=== PATIENT | male | born 1930 | race Caucasian/White ===

== ENCOUNTER 2019-08-01 12:36 | Observation (INO) ==
--- NOTE | 2019-08-01 13:49 | Diag Imaging Result Doc PS360 ---
EXAM: CT HEAD W/O CONTRAST HISTORY: Confusion TECHNIQUE: CT head without contrast COMPARISON: None. FINDINGS: No parenchymal hemorrhage. No epidural or subdural hematoma. No subarachnoid hemorrhage. Mild chronic ischemic changes. No mass identified on this noncontrasted exam. No hydrocephalus. No sinus opacification. IMPRESSION: No hemorrhage. Mild chronic ischemic changes.. This exam was performed using automated exposure control, adjustment of mA or kV according to patient size, and/or use of iterative reconstruction technique. Electronically signed by Darren Root 08/01/2019 1:47 PM
--- NOTE | 2019-08-01 14:30 | EKG Report ---
Test Performed on : 08/01/2019 2:27:40 PM Test Reason : Stroke like symptoms Blood Pressure : / mmHG Vent. Rate : 080 BPM Atrial Rate : 092 BPM P-R Int : 000 ms QRS Dur : 112 ms QT Int : 354 ms P-R-T Axes : 000 029 004 degrees QTc Int : 408 ms Atrial fibrillation. with premature ventricular or aberrantly conducted complexes. Abnormal ECG No previous ECGs available Unconfirmed Result
--- NOTE | 2019-08-01 14:32 | PROVIDER DOCUMENTATION ---
HPI-Neurological Disorder - General Chief Complaint: Altered Mental Status Stated Complaint: STROKE LIKE SYMPTOMS Time Seen by Provider: 08/01/19 14:13 Source: patient, family Allergies/Adverse Reactions: Patient Allergies Allergy/AdvReac Type Severity Reaction Status Date / Time ciprofloxacin [From Cipro] Allergy Unknown Verified 08/01/19 14:41 Penicillins Allergy Unknown Verified 08/01/19 14:41 Home Medications: Home Medication List Medication Instructions Recorded Confirmed Last Taken Type Apixaban [Eliquis] 2.5 mg PO BID 05/29/17 08/01/19 07/31/19 History Digoxin 125 mcg PO DAILY 05/29/17 08/01/19 07/31/19 History - History of Present Illness-Neuro Nature of Presenting Problem: 89 yom presents with c/o occipital headache that occured yesterday, l arm numbness and the l side of his mouth became numd. he reports this was at approx 4pm yesterday. his daughter reports that he has been confused and "got lost in a room last night". On exam he is [place] but answers all questions appropriately. he reports no current numbness or tingling. He denies falls, sob, cp, n/v/d. he reports he did get his flu shot on Headache Location: reports: occipital Severity: denies: mild, moderate, severe Onset/Duration: reports: 24 hours ago Timing: reports: gone now Context: reports: paresthesia (L arm and L side of mouth). denies: drug abuse, head injury Character of Altered Mental Status: reports: disoriented (got lost in a room last night in his home but is back to baseline currently) Any recent trauma/injury?: reports: none Character of Deficits: reports: altered sensation (L arm and L face last night that has resolved) New weakness or altered sensation location:: reports: LUE, left facial Cognitive Baseline: alert, oriented x3 Gait Baseline: uses a walker Associated Symptoms: reports: headache, confusion, paresthesia Similar Symptoms Previously?: No Recently seen or treated by another doctor?: No Review of Systems - Adult - REVIEW OF SYSTEMS - ADULT Constitutional: reports: no symptoms reported. denies: see HPI, chills, fever, fatique, night sweats, weight gain, weight loss, other Eyes: reports: no symptoms reported. denies: see HPI, discharge, dry eyes, decreased vision, blurred vision, double vision, eye pain, redness, other Ears, Nose, Mouth & Throat: reports: no symptoms reported. denies: see HPI, ear discharge, ear pain, hearing loss, tinnitus, epistaxis, sinus problem, nose pain, loose teeth, mouth/dental pain, mouth swelling, hoarseness, throat pain, throat swelling, other Cardiovascular: reports: no symptoms reported Respiratory: reports: no symptoms reported. denies: see HPI, chronic cough, cou gh, dyspnea on exertion, excessive sputum production, hemoptysis, pleurisy, shortness of breath, wheezing, other Gastrointestinal: reports: no symptoms reported. denies: see HPI, abdominal pain, hematemesis, constipation, diarrhea, difficulty swallowing, frequent heartburn, nausea, poor appetite, rectal bleeding, vomiting, other Genitourinary: reports: no symptoms reported. denies: see HPI, dysuria, discharge, frequency, flank pain, frequent UTI's, hematuria, hesitency, incontinence, urinary retention, urgency, other Musculoskeletal: reports: no symptoms reported. denies: see HPI, bone pain, back pain, frequent leg cramps, joint pain, joint swelling, muscle aches, muscle weakness, neck pain, other Integumentary: reports: no symptoms reported. denies: see HPI, hives, hair loss, itching, mole changes, nail changes, rash, skin sores/ulcer, skin thickening, other Neurological: reports: see HPI, headache/migraines, numbness (l face and arm), paresthesia Psychiatric: reports: no symptoms reported. denies: see HPI, anxiety, anti- depressant use, alcohol/drug dependence, depression, emotional problems, insomnia, panic attacks, suicidal thoughts, other Endocrine: reports: no symptoms reported. denies: see HPI, change in skin pigment, excessive sweating, goiter, cold intolerance, heat intolerance, increased hunger, increased thirst, polyuria, other Hematologic/Lymphatic: reports: no symptoms reported. denies: see HPI, blood clots, easy bruising, low blood count, lymphedema, prolonged bleeding, swollen lymph nodes, transfusions, other Allergic/Immunologic: reports: no symptoms reported. denies: see HPI, allergic reactions, allergic rhinitis, asthma, eczema, food allergy, frequent infections, hay fever, hives, positive PPD, urticaria, other Past History - Adult - PAST MEDICAL HISTORY-ADULT Review of Records: reports: Nursing Assessment Review, Social history reviewed & non-contributory. Major Childhood Illnesses: reports: denies history Cardiovascular: reports: CAD, HTN Respiratory: reports: denies history Gastrointestinal: reports: denies history Obstetrical/Gynecological: reports: denies history Genitourinary: reports: denies history Musculoskeletal: reports: denies history Neurological: reports: denies history Endocrine/Immune: reports: Diabetes, thyroid disorder Other Conditions: reports: cataract/glaucoma - PRIOR SURGERIES/PROCEDURES Surgical/Procedure History: reports: cardiac stent, other (hemorrhoid) - IMMUNIZATION STATUS Childhood Immunizations: See Nurse Assessment Flu Vaccine: See Nurse Assessment - FAMILY HISTORY Family History: reviewed, not pertinent Physical Exam- Neurological - Physical Exam-Neuro Initial Vital Signs Reviewed: Yes General Appearance: appears well, alert, no apparent distress Eye Exam: bilateral eye: normal inspection, PERRL, EOMI HENMT: normocephalic/atraumatic, moist mucous membranes, normal ENT inspection Head Injury: no evidence of injury Neck: non-tender, full range of motion, supple Respiratory: chest non-tender, lungs clear, normal breath sounds, no pleuratic chest pain, no respiratory distress, no accessory muscle use Cardiovascular: normal peripheral pulses, regular rate, rhythm, no edema, no gallop, no JVD, no murmur Abdominal Exam: normal bowel sounds, non tender, soft, no pulsatile mass Lymphatic: no adenopathy Extremity: normal range of motion, non-tender, normal gait, normal inspection, 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 negative: normal hearing ([place] (left hearing aids at home)), facial droop, facial paresthesias, facial weakness Coordination/Gait: normal finger to nose Motor/Sensory: no motor deficit, no sensory deficit, no pronator drift Neurologic: grossly normal. negative: aphasia, facial droop, focal weakness, motor weakness, sensory deficit Integumentary: normal color, normal turgor, warm/dry Psych/Mental Status: normal mood/affect, oriented x 3 - Glascow Coma Scale Best Eye Response: (4) open spontaneously Best Verbal Response: (5) oriented Best Motor Response: (6) obeys commands Progress - PLAN OF CARE/RESULTS Progress/Plan/Lab Results: Vital Signs - 8 hr 08/01/19 12:47 08/01/19 14:25 08/01/19 14:26 Temperature 98.7 F Pulse Rate 83 92 H 80 Respiratory Rate 16 20 34 H Blood Pressure 123/72 123/77 O2 Sat by Pulse Oximetry 97 Laboratory Results - last 24 hr 08/01/19 08/01/19 08/01/19 14:35 14:35 14:35 WBC 5.08 RBC 4.89 Hgb 13.9 L Hct 41.6 L MCV 85.1 MCH 28.4 MCHC 33.4 RDW Std Deviation 13.7 Plt Count 165 MPV 11.9 H Immature Gran % (Auto) 0.8 H Neut % (Auto) 66.3 Lymph % (Auto) 18.7 L [place] % (Auto) 12.2 H Eos % (Auto) 0.8 Baso % (Auto) 1.2 H Immature Gran # (Auto) 0.04 Neut # (Auto) 3.37 Lymph # (Auto) 0.95 L [place] # (Auto) 0.62 H Eos # (Auto) 0.04 Baso # (Auto) 0.06 PT 16.5 H INR 1.31 PTT (Actin FS) 34.7 Sodium 131 L Potassium 4.3 Chloride 93 L Carbon Dioxide 24 L Anion Gap 14 BUN 17 Creatinine 0.7 Estimated GFR/1.73 m2 > 60 BUN/Creatinine Ratio 24 Glucose 289 H Calculated Osmolality 275 Calcium 9.7 Total Bilirubin 0.51 AST 18 ALT 16 Alkaline Phosphatase 96 Troponin T Total Protein 7.1 Albumin 4.1 Globulin 3.0 Albumin/Globulin Ratio 1.4 Urine Source Urine Color Urine Turbidity Urine pH Ur Specific [place] Urine Protein Ur Glucose (Stick) Ur Ketones (Stick) Urine Blood Urine Nitrite Urine Bilirubin Urobilinogen Dipstick Urine Leukocytes Urine WBC (Auto) Urine RBC (Auto) U Epithel Cells (Auto) Urine Bacteria (Auto) Urine Opiates Screen Ur Oxycodone Screen Ur Methadone, Qual Ur Barbiturates Screen Ur Phencyclidine Scrn Ur Amphetamines Screen U Benzodiazepines Scrn Urine Cocaine Screen U Cannabinoids Screen 08/01/19 08/01/19 08/01/19 14:35 14:57 14:57 WBC RBC Hgb Hct MCV MCH MCHC RDW Std Deviation Plt Count MPV Immature Gran % (Auto) Neut % (Auto) Lymph % (Auto) [place] % (Auto) Eos % (Auto) Baso % (Auto) Immature Gran # (Auto) Neut # (Auto) Lymph # (Auto) [place] # (Auto) Eos # (Auto) Baso # (Auto) PT INR PTT (Actin FS) Sodium Potassium Chloride Carbon Dioxide Anion Gap BUN Creatinine Estimated GFR/1.73 m2 BUN/Creatinine Ratio Glucose Calculated Osmolality Calcium Total Bilirubin AST ALT Alkaline Phosphatase Troponin T < 0.010 Total Protein Albumin Globulin Albumin/Globulin Ratio Urine Source CLEAN CATCH Urine Color YELLOW Urine Turbidity CLEAR Urine pH 5.5 Ur Specific [place] 1.025 Urine Protein NEGATIVE Ur Glucose (Stick) >1000 A Ur Ketones (Stick) NEGATIVE Urine Blood NEGATIVE Urine Nitrite NEGATIVE Urine Bilirubin NEGATIVE Urobilinogen Dipstick NORMAL Urine Leukocytes NEGATIVE Urine WBC (Auto) <10 Urine RBC (Auto) <10 U Epithel Cells (Auto) <10 Urine Bacteria (Auto) NEGATIVE Urine Opiates Screen NONE DETECTED Ur Oxycodone Screen NONE DETECTED Ur Methadone, Qual NONE DETECTED Ur Barbiturates Screen NONE DETECTED Ur Phencyclidine Scrn NONE DETECTED Ur Amphetamines Screen NONE DETECTED U Benzodiazepines Scrn NONE DETECTED Urine Cocaine Screen NONE DETECTED U Cannabinoids Screen NONE DETECTED Orders Category Date Time Status Cardiac Monitoring DIRECTED Care 08/01/19 14:19 Active Finger Stick Blood Sugar (ED) DIRECTED Care 08/01/19 14:19 Active Saline Loc NOW Care 08/01/19 14:19 Active Saline Loc NOW Care 08/01/19 14:[address] HEAD W/O CONTRAST [CT] Stat Exams 08/01/19 12:55 Completed CBC WITH ELECTRONIC DIFF [HEME] Stat Lab 08/01/19 14:35 Completed COMPREHENSIVE METABOLIC PANEL [CHEM] Stat Lab 08/01/19 14:35 Completed PROTIME WITH INR [COAG] Stat Lab 08/01/19 14:35 Completed PTT [COAG] Stat Lab 08/01/19 14:35 Completed TROPONIN T Stat Lab 08/01/19 14:35 Completed URINALYSIS W/POSS RFLX CULT [URINALYSIS] Stat Lab 08/01/19 14:57 Completed URINE DRUG SCREEN Stat Lab 08/01/19 14:57 Completed EKG [EKG] Stat Ther 08/01/19 14:19 Draft Result Diagrams: 08/01/19 14:35 08/01/19 14:35 - EKG 1 Time of EKG reading by physician:: 14:33 EKG Read and Signed by:: Vishal Montes EKG Interpretation (*Must complete 3 of following elements*): Abnormal Rate: 80 Rhythm: a-fib [place]: normal QRS: normal [place] Interval: normal ST Wave: normal Prior EKG Comparison: no prior EKG - CT/MRI 1 CT Study: Head Impression: See EMR Report (EXAM: CT HEAD W/O CONTRAST HISTORY: Confusion TECHNIQUE: CT head without contrast COMPARISON: None. FINDINGS: No parenchymal hemorrhage. No epidural or subdural hematoma. No subarachnoid hem orrhage. Mild chronic ischemic changes. No mass identified on this noncontrasted exam. No hydrocephalus. No sinus opacification. IMPRESSION: No hemorrhage. Mild chronic ischemic changes.. This exam was performed using automated exposure control, adjustment of mA or kV according to patient size, and/or use of iterative reconstruction technique. Electronically signed by Darren Root 08/01/2019 1:47 PM 08/01/19 1347 Interpreting Physician: Darren Root MD Dictated Date/Time: 08/01/19 1346 cc: Keri De Paz; Alex Ordaz DO) - CONSULTS/PCP/HOSPITALIST Notification #1 *Consult/PCP/Hospitalist*: admit to Dr. Cuevas, spoke with [place] [facility] Time Discussed: 15:55 Consult Disposition: Admit Departure - Departure Date of Disposition Decision: 08/01/19 Time of Disposition Decision: 15:54 DIAGNOSIS: TIA (transient ischemic attack) Disposition: ADMITTED INPATIENT 09 Certified Medical Emergency: Emergent Condition: Stable Referrals and Follow-Ups: Alex Ordaz DO [Primary Care Provider] - - Critical Care Note This patient required my direct & personal management of CC.: No Attestation - Physician/ LUIZ Attestation Patient care was provided by Advanced Practice Provider:: Yes Advanced Practice Provider:: Meagan Tao Advanced Practice Provider documentation review:: The Mid-level provider documentation, treatment plan and medical decision making was reviewed by the physician who agrees with all treatment and medical decision making by the MLP. The physician spent face to face time with patient:: No Advanced Practice Provider documentation review:: Supervising physician onsite and consulted in the evaluation and care of this patient. The physician did not have a face to face encounter with the patient. - NIH Stroke Scale NIH Type: Initial Evaluation Level of Consciousness: 0-Alert LOC Questions (ask month and age): 0-Answers Both Correctly LOC Commands (ask to open & close eyes;make a fist, let go): 0-Obeys Both Correctly Best Gaze (horizontal eye movement): 0-Normal Visual (use finger movement, counting or visual threat): 0-No Visual Loss Facial Palsy (show teeth or raise eyebrows & close eyes tght: 0-Symmetrical Movement Motor Function-left arm: 0-Normal Motor Function-right arm: 0-Normal Motor Function-left le-Normal Motor Function-right le-Normal Limb Ataxia([id number], or heel to alvarado): 0-No Ataxia Sensory(pin prick to face,arms,trunk,legs-compare side/side): 0-No Ataxia Best Language(name item/read sentence.Ex-Down to Earth): 0-No Aphasia Dysarthria(Pt read words or say words Ex.Mama,Tip-Top,Thanks: 0-Normal Articulation Extinction and Inattention: 0-Normal NIH Total Score: 0 Stroke tPA Guidelines - Inclusion Criteria for IV tPA 18 years old or older: Yes Ischemic stroke with measurable deficit: No Onset <3 hours ago *OR* 3-4.5 hours ago: No
[2019-08-01 14:52] LABS: BASO# 0.06 X1000 (0.0-0.2); BASO% 1.2 % (0.0-0.8); EOS# 0.04 X1000 (0.0-0.7); EOS% 0.8 % (0.0-10.0); HEMATOCRIT 41.6 % (42.0-52.0); HEMOGLOBIN 13.9 g/dL (14.0-18.0); IMM GRAN# 0.04 X1000 (0.0-0.04); IMM GRAN% 0.8 % (0.0-0.5); LYMPH# 0.95 X1000 (1.2-3.4); LYMPH% 18.7 % (20.5-51.1); MCH 28.4 PG (27-31); MCHC 33.4 g/dL (33-37); MCV 85.1 FL (81-99); MONO# 0.62 X1000 (0.11-0.59); MONO% 12.2 % (1.7-9.3); MPV 11.9 FL (7.4-10.4); NEUT# 3.37 X1000 (1.4-6.5); NEUT% 66.3 % (42.2-75.2); PLT 165 X1000 (130-400); RBC 4.89 XMIL (4.7-6.1); RDW 13.7 % (11.5-14.5); WBC 5.08 X1000 (4.8-10.8)
[2019-08-01 14:58] LABS: INR 1.31; PROTIME 16.5 Seconds (11.0-16.0)
[2019-08-01 14:59] LABS: PTT 34.7 Seconds (22.3-41.8)
[2019-08-01 15:04] LABS: URINE SOURCE CLEAN CATCH
[2019-08-01 15:10] LABS: UR EPITHELIAL CELLS <10 /HPF (<10); URINE BACTERIA NEGATIVE /HPF; URINE RBC <10 /HPF (<10); URINE WBC <10 /HPF (<10)
[2019-08-01 15:11] LABS: BILIRUBIN URINE NEGATIVE (NEGATIVE); BLOOD URINE NEGATIVE (NEGATIVE); COLOR YELLOW; GLUCOSE URINE >1000 mg/dL (NEGATIVE); KETONE URINE NEGATIVE (NEGATIVE); LEUKOCYTES URINE NEGATIVE (NEGATIVE); NITRITE URINE NEGATIVE (NEGATIVE); PH URINE 5.5; PROTEIN URINE NEGATIVE (NEGATIVE); SP GRAVITY URINE 1.025; TURBIDITY URINE CLEAR (CLEAR); UROBILINOGEN URINE NORMAL (NORMAL)
[2019-08-01 15:21] LABS: AGAP 14; ALB/GLOB RATIO 1.4; ALBUMIN 4.1 g/dL (3.5-5.0); ALKALINE PHOSPHATASE 96 U/L (32-122); BUN 17 mg/dL (8-22); CALCIUM 9.7 mg/dL (8.8-10.2); CHLORIDE 93 mmol/L (98-107); COSMO 275; CREATININE 0.7 mg/dL (0.7-1.2); ESTIMATED GFR > 60; GLUCOSE 289 mg/dL (70-104); GOT 18 U/L (10-34); GPT 16 U/L (10-44); POTASSIUM 4.3 mmol/L (3.5-5.1); SODIUM 131 mmol/L (136-145); TCO2 24 mmol/L (25-35); TOTAL BILIRUBIN 0.51 mg/dL (0.20-1.00); TOTAL PROTEIN 7.1 g/dL (6.3-8.3)
[2019-08-01 15:21] LABS: UR AMPHETAMINES QUAL NONE DETECTED (NONE DETECT); UR BARBITUATES QUAL NONE DETECTED (NONE DETECT); UR BENZODIAZEPIN QUAL NONE DETECTED (NONE DETECT); UR CANNABINOIDS QUAL NONE DETECTED (NONE DETECT); UR COCAINE QUAL NONE DETECTED (NONE DETECT); UR METHADONE QUAL NONE DETECTED (NONE DETECT); UR OPIATES QUAL NONE DETECTED (NONE DETECT); UR OXYCODONE QUAL NONE DETECTED (NONE DETECT); UR PCP QUAL NONE DETECTED (NONE DETECT)
[2019-08-01] MEDS ORDERED: ASPIRIN PO ONE (15:55)
--- NOTE | 2019-08-01 16:49 | HISTORY AND PHYSICAL ---
PRIMARY CARE PHYSICIAN: Dr. Alex Ordaz. CHIEF COMPLAINT: A headache, left arm numbness and left side of mouth numb that began on Thursday around 4 p.m. but has now resolved, was also noted to have been confused and got lost in his home last night. HISTORY OF PRESENTING ILLNESS: This is an 89-year-old male who presents to [facility] with complaints of an occipital headache, some left arm numbness and left side of his mouth being numb that began on Thursday evening around 4 p.m. Daughter states that he also got confused Thursday night at home and got lost in his home going to the bathroom and could not remember where to go. All the symptoms have resolved at this time. He is alert and oriented x3, answers all questions appropriately, has no neurological deficits but does state that he still has some mild numbness to the left side of his lip but otherwise neurological exam is within normal limits. His workup showed a head CT that showed no hemorrhage, mild chronic ischemic changes. Laboratory data fairly unremarkable except he did have sodium level of 131. Urinalysis was negative. Urine drug screen was negative but he will be admitted for further evaluation and treatment. PAST MEDICAL HISTORY: Coronary artery disease with an CO, hypertension, atrial fibrillation, diabetes type 2 and hypothyroidism. PAST SURGICAL HISTORY: Heart stent placement, hemorrhoidectomy and a cataract removal. FAMILY HISTORY: Reviewed and noncontributory. SOCIAL HISTORY: Currently lives with family. Denies any tobacco, alcohol or illicit drug use. ALLERGIES: To Cipro and penicillin. HOME MEDICATIONS: He takes Eliquis 2.5 mg p.o. b.i.d. and digoxin 125 mcg p.o. daily. LABORATORY DATA: Showed a white blood cell count of 5.08, hemoglobin 13.9, hematocrit 41.6, platelets 165,000, PT and INR of 16.5 and 1.31. Sodium of 131, potassium 4.3, chloride 93, CO2 24, BUN of 17, creatinine 0.7, glucose 289. Troponin was less than 0.010. Urinalysis was negative. Urine drug screen showed none detected. CT of the head showed no hemorrhage but mild chronic ischemic changes. EKG showed atrial fibrillation with PVCs at 80. REVIEW OF SYSTEMS: He denied any fever, chills, blurred vision, dizziness, chest pain, coughing, shortness of breath, abdominal pain, constipation, diarrhea, burning or hurting with urination. On Thursday night he did have a headache and left-sided arm numbness and left- sided lip numbness which have all resolved at this time. PHYSICAL EXAMINATION: On arrival he had a temperature of 98.7 degrees, pulse 83, respirations 16, blood pressure 123/72, saturating 97% on room air. GENERAL: This is an 89-year-old male who is lying in the bed and answers questions appropriately. HEENT: Normocephalic and atraumatic. Normal ENT inspection. Oropharynx and nares are clear. Pupils are equal, round, reactive to light and accommodation. Extraocular movements are intact. NECK: Normal inspection, normal range of motion. LUNGS: Clear to auscultation bilaterally with equal lung expansion and chest wall movement. HEART: With regular rate and rhythm. No murmurs, rubs, or gallops. ABDOMEN: Soft, nontender, nondistended. Bowel sounds are present x4 quadrants. MUSCULOSKELETAL: He had 5/5 strength x4 extremities. NEUROLOGICAL: The cranial nerves 2-12 appear grossly intact. ASSESSMENT: 1. Transient ischemic attack. Will place the patient on telemetry and order a carotid doppler and MRI of the brain to be done tomorrow. Will start aspirin and check a lipid profile in the morning. Will order PT and OT. 2. Hyponatremia. Will start IVF and monitor the sodium closely. 3. Atrial fibrillation. The patient is rate controlled. Continue on eliquis and digoxin. 4. Diabetes type 2.. Will start sliding scale insulin. Dictated by CHELSEY Ryan for Mely Ge MD cc: DO Mely Gunderson MD I performed a face to face encounter on the patient. I reviewed all labs and imaging on the patient. I agree with the H&P as dictated. FLOR
[2019-08-01] MEDS ORDERED: ZOFRAN IV PRN (16:55)
[2019-08-01] MEDS ORDERED: TYLENOL PO PRN (16:55)
--- NOTE | 2019-08-01 18:08 | Diag Imaging Result Doc PS360 ---
CHEST-PORTABLE - 08/01/2019 INDICATION: dyspnea COMPARISON: None FINDINGS: The lungs are normally expanded and clear. Heart size and mediastinal contours are normal. No pneumothorax or pleural effusion. IMPRESSION: Negative exam. Electronically signed by Juanito Valdez 08/01/2019 6:06 PM
[2019-08-01] MEDS: ELIQUIS PO SCH (20:22)
[2019-08-01] MEDS: NS 1,000 ML IV SCH (20:22)
[2019-08-02 07:27] LABS: BASO# 0.08 X1000 (0.0-0.2); BASO% 1.9 % (0.0-0.8); EOS# 0.07 X1000 (0.0-0.7); EOS% 1.7 % (0.0-10.0); HEMATOCRIT 40.9 % (42.0-52.0); HEMOGLOBIN 13.7 g/dL (14.0-18.0); IMM GRAN# 0.02 X1000 (0.0-0.04); IMM GRAN% 0.5 % (0.0-0.5); LYMPH# 1.25 X1000 (1.2-3.4); LYMPH% 30.3 % (20.5-51.1); MCH 28.3 PG (27-31); MCHC 33.5 g/dL (33-37); MCV 84.5 FL (81-99); MONO% 14.6 % (1.7-9.3); MPV 11.2 FL (7.4-10.4); PLT 176 X1000 (130-400); RBC 4.84 XMIL (4.7-6.1); RDW 13.7 % (11.5-14.5); WBC 4.12 X1000 (4.8-10.8)
[2019-08-02 07:49] LABS: AGAP 13; BUN 13 mg/dL (8-22); CALCIUM 9.6 mg/dL (8.8-10.2); CHLORIDE 100 mmol/L (98-107); COSMO 280; CREATININE 0.7 mg/dL (0.7-1.2); ESTIMATED GFR > 60; GLUCOSE 234 mg/dL (70-104); POTASSIUM 3.9 mmol/L (3.5-5.1); SODIUM 136 mmol/L (136-145); TCO2 23 mmol/L (25-35)
[2019-08-02] MEDS ORDERED: ATIVAN IV ONE (08:00)
[2019-08-02] MEDS: ELIQUIS PO SCH ×2 (08:23→20:11)
[2019-08-02] MEDS: LANOXIN PO SCH (08:23)
[2019-08-02] MEDS: ASPIRIN PO SCH (08:23)
--- NOTE | 2019-08-02 11:12 | Diag Imaging Result Doc PS360 ---
EXAM: MRI BRAIN W/O CONTRAST 08/02/2019 HISTORY: Recurrent TIA TECHNIQUE: T1 sagittal and axial, T2 coronal and axial, FLAIR, DWI axial and coronal gradient echo. COMMENT: There are patchy and punctate areas of increased T2-weighted signal intensity in the periventricular and subcortical white matter of both hemispheres. There is a tiny punctate focus of restricted diffusion in the subcortical white matter of the right temporal lobe. There is no evidence of mass effect, bleed, or abnormal extra-axial fluid collection. 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 Electronically signed by Dave Gaines 08/02/2019 11:09 AM
--- NOTE | 2019-08-02 13:51 | EEG REPORT ---
DATE: 08/02/2019 REFERRING PHYSICIAN: Dr. Cassia Valdez. DELIVERY SUPERVISOR: Nikki Ordaz. BACKGROUND INFORMATION/TECHNIQUE: This is a digitally recorded routine EEG with video. HISTORY: An 89-year-old patient admitted with confusion and left-sided paresthesias. EEG is ordered to detect evidence of seizures. MEDICATIONS: The patient was recently sedated for MRI. EEG FINDINGS: A posterior dominant alpha rhythm is not seen. The background at maximal alertness consists of theta slowing with intermixed faster frequencies. No definite persistent focal slowing. No epileptiform discharges. No seizures. Hyperventilation is not performed. Photic stimulation induces a normal driving response. The patient is drowsy or in stage II sleep for the majority of the record. EKG demonstrates irregular intervals. IMPRESSION AND CLINICAL CORRELATION: Borderline abnormal routine EEG due to mild diffuse slowing which is suggestive of a mild nonspecific encephalopathy versus drowsiness. No epileptiform discharges or seizure is seen on the current study. This does not rule out an underlying seizure disorder. Generalized slowing is a nonspecific finding that can be seen in processes that diffusely affect the cerebrum including toxic, metabolic, pharmacologic, posthypoxic and infectious etiologies, amongst others. If the patient has recently received sedating medications, then that may be the etiology. cc: Cassia Bobby MD
[2019-08-02] MEDS: NS 1,000 ML IV SCH (16:35)
--- NOTE | 2019-08-02 17:47 | PROGRESS NOTE ---
DATE: 08/02/2019 Mr. Mathur was resting, sleeping, and seemed to be breathing comfortably. He was admitted on 08/01/2019. Complained of a headache, left arm numbness, left side of his mouth numb. It began on Thursday around 4 p.m. and then resolved. Noted he had been confused and got lost in his home the night before admission. This is an 89-year-old who presented to [facility] with complaints of occipital headache, some left arm numbness, left side of his mouth being numb that began Thursday around 4 p.m. His daughter states that he got confused Thursday night at home, got lost in his home going to the bathroom, could not remember where to go. All the symptoms resolved by time they got to the hospital. He was alert and oriented x3. Answered questions appropriately. No neurologic deficits, but he stated he had some mild numbness in the left side of his lip. Otherwise, neurologic exam within normal limits. Workup showed head CT that showed no hemorrhage, mild chronic ischemic change. Laboratory data unremarkable except that he did have sodium level 131. Urinalysis was negative. Drug screen was negative, but he was admitted for further evaluation. PAST MEDICAL HISTORY: 1. Coronary artery disease status post myocardial infarction. 2. History of hypertension. 3. Atrial fibrillation. 4. Diabetes mellitus, type 2. 5. Hypothyroidism. PAST SURGICAL HISTORY: He had stent placement, hemorrhoidectomy, had cataract removal. Admission diagnosis of transient ischemic attack versus CVA. They wanted a carotid and Doppler and some hyponatremia, history of atrial fibrillation. He is already on Eliquis and digoxin and history of diabetes. Sugars appear to be okay. He was resting comfortably. OBJECTIVE: Temperature 97.9 degrees, pulse 80, respirations 18, blood pressure 122/61. Pupils are equal and round. Lungs are clear in all lung zamorano anterolateral. Cardiovascular: Regular rhythm and rate without murmur or S3. Abdomen is soft. Skin is warm and dry. LABORATORY DATA: White count 4120, hematocrit 40, hemoglobin 13, platelet count 176,000. Sodium 136, potassium 3.9, chloride 100, BUN 13, creatinine 0.7. Total cholesterol 149, HDL was 32, LDL was only 116. Vitamin D level was 34. ASSESSMENT AND PLAN: He had a brain MRI: Tiny lacunar infarct in the right hemisphere. His chest x-ray negative. Lungs are normally expanded and clear heart size. Mediastinal contours are normal. No pneumothorax. EEG read by Dr. Valdez: Borderline abnormal EEG due to mild diffuse slowing which is suggestive of mild nonspecific encephalopathy versus drowsiness. No epileptiform discharges or seizures are seen in the current study. It does not rule out underlying seizure disorder. Generalized slowing. Nonspecific findings can be seen in processes diffusely effect the cerebrum, including toxic metabolic, pharmacologic, and post-hypoxic infectious etiologies. REVIEW OF ORDERS: He is on Eliquis 2.5 mg b.i.d., aspirin 81 mg a day, Lanoxin 125 mcg daily, getting normal saline at 50 mL an hour aspirin 325 mg he got 1 dose yesterday. He got 1 dose of Ativan 1 mg IV yesterday. I believe Dr. Moreno is consulted, and Dr. Tha Martinez was consulted. cc: Wally Marquez MD
--- NOTE | 2019-08-02 19:07 | CONSULTATION ---
DATE OF CONSULTATION: 08/02/2019 REASON FOR CONSULT: Question TIA, confusion. HISTORY OF PRESENT ILLNESS: This is an 89-year-old, ambidextrous male who was admitted with symptoms concerning for stroke. History is from the patient and his attentive daughter. Apparently, early Thursday morning, he had gotten out of bed to use the restroom, but got lost in the house. It was dark. They are uncertain how long he was out of bed, but eventually he called out for his who got up using her walker and found him standing in the corner of the dining room. He seemed to be confused and unable to find his way out of the dining room. He had urinated on himself. There was not focal weakness, language disturbance, visual disturbance. There was complaint of numbness involving the left side of his mouth and left arm. The patient tells me he has had that in the past as well. Apparently, the symptoms resolved early after his presentation. He has received some sedating medications for recent MRI and is a little bit groggy during my encounter. Head CT on arrival did not show acute findings. MRI today showed a tiny lacunar infarction in the subcortical white matter of the right temporal lobe. There is no prior history of stroke or major neurologic event. There is no report during this time of syncope. The patient seems to recall that he got up to the bathroom and says he then got "tangled up", but that is about all he can recall. Prior to this event, they have not noticed any issues with memory. PAST MEDICAL HISTORY: Includes: 1. Coronary disease. 2. Hypertension. 3. Type 2 diabetes. 4. Atrial fibrillation. 5. Hypothyroidism. 6. Cataract. FAMILY HISTORY: Reviewed and noncontributory. SOCIAL HISTORY: He is and lives with his . No tobacco, alcohol, or illicits. ALLERGIES: Listed to ciprofloxacin and penicillins. HOME MEDICATIONS: Were reviewed with the daughter today. Of note, he takes Eliquis 2.5 mg p.o. b.i.d. REVIEW OF SYSTEMS: Balance of 12 was conducted and otherwise negative except that detailed in the HPI. PHYSICAL EXAMINATION: Vital Signs: Afebrile, blood pressure 123/72 on admission, currently 129/65, pulse 70s, respirations 18, 95% on room air. General: Mr. Kevan is supine in bed with head of bed elevated. He is eating his lunch and his daughter is helping to facilitate that. He appears to be chewing and swallowing without difficulty. He is awake, reasonably alert, and attentive. He is oriented to location, year, and to the president, but he missed the month. He follows simple commands consistently with left right and digit distinction preserved. No obvious language disturbance on brief bedside testing. There may be some mild dysarthria. Pupils are equal, round, and reactive. Extraocular movements are full with the exception of some limited upgaze bilaterally, which may be age related. Visual zamorano intact to direct confrontational testing. He is hard of hearing. Face appears symmetric with equal activation. Facial sensation reported intact. Tongue is midline. Palate elevates symmetrically. Shoulder shrug is full. Tone is symmetric in the limbs. Power is preserved in the limbs tested. He reports symmetric sensation to temperature and light touch in the arms and legs. [id number] intact. Rapid alternating movements slow, but intact. Reflexes are diminished at the wrists and ankles bilaterally. No clonus. Plantar response is downgoing. I did not test his gait. DIAGNOSTICS: MRI of the brain, noncontrast, personally reviewed showing a tiny punctate focus of restricted diffusion in the subcortical white matter in the right temporal lobe. Head CT did not show acute findings. Did show mild chronic ischemic changes. Routine EEG was personally reviewed, showing borderline abnormal routine EEG due to mild diffuse slowing, suggestive of a mild nonspecific encephalopathy versus drowsiness. This may be related to recent sedating medications. LABS: Reviewed in the chart. Sodium 131 on admission. BUN and creatinine normal. Blood sugars mid to upper 200s. Calcium normal. AST and ALT normal. Triglycerides 142, cholesterol 149, LDL 116, HDL 32, and greater than 1000 glucose on urinalysis. Toxicology negative. ASSESSMENT AND PLAN: Transient acute confusional state with reports of left- sided facial and left arm numbness, now resolved. The patient has had a very small stroke in the temporal region subcortically on imaging. This is likely at least partially related. For that, I would agree with typical stroke workup as you are doing. I would continue his anticoagulation. Blood pressure today looks stable. I also ordered a routine electroencephalogram and that did not show any evidence of an increased propensity to seizure. A subcortical lesion would not typically be an epileptogenic focus. There was some diffuse slowing, likely related to recent sedative medications. Agree with aggressive risk factor modification and correction of any toxic metabolic disturbance. Hopefully, his mental status will continue to improve as the sedating medication wears off. Physical therapy, occupational therapy, and speech therapy for swallow evaluation. Thank you for the consultation. cc: Cassia Bobby MD MTDD
--- NOTE | 2019-08-02 20:47 | GENERAL SURGERY CONSULTATION ---
DATE: 08/02/2019 REASON FOR CONSULTATION: Carotid stenosis and right hemispheric lacunar infarct. CONSULTING PHYSICIAN: Hospitalist. HISTORY OF PRESENT ILLNESS: This is an 89-year-old gentleman who developed some left-sided weakness over the course of the day the evening and this morning. He was found by a family member, had some slight slurring of speech and left upper extremity issues. He came to the ER where CT and MRI were obtained that showed a lacunar infarct on the right. This is apparently his first episode, although history is a little limited. He was sleeping pretty soundly when I entered the room. He has an ongoing medical history significant for coronary disease, hypertension, diabetes, atrial fibrillation, hypothyroidism. MEDICAL HISTORY: As noted in his HPI. SURGICAL HISTORY: He has had coronary stents, hemorrhoidectomy, and cataract removal. FAMILY HISTORY: Reviewed and noncontributory. SOCIAL HISTORY: No tobacco, alcohol, or drugs. He lives with his family. MEDICATIONS: Significant for Eliquis and digoxin, which he takes for his atrial fibrillation. REVIEW OF SYSTEMS: A 10-point review of systems performed and negative otherwise than mentioned in HPI. PHYSICAL EXAMINATION: He is afebrile, temperature 98.2 pulse 86, blood pressure 147/60, oxygen saturation 98%. He is an elderly-appearing gentleman who is sleeping soundly and somewhat difficult to arouse, but can converse and awake readily.HEENT: No scleral icterus. No cervical mass. Cardiovascular: Normal rate. Pulmonary: No increased work of breathing. Abdomen: Soft. Integument: Warm and dry. Psychiatric: Somewhat confused, but appropriate affect and conversant. Neurologic: Generalized weakness diffusely, but no focal deficits. Cranial nerves are intact. Strength is 5/5 and sensation is grossly intact. Peripheral vascular: No lower extremity edema, and otherwise warm and well perfused. LABORATORY AND DIAGNOSTIC DATA: White count is 4, hematocrit is 40. Creatinine 0.7. Urinalysis did have glucose in it, but negative for nitrites, leukocytes. Digoxin level 0.4. His other urine toxicology screen was negative. CT of the head showed no hemorrhagic changes, but chronic ischemic changes noted. Brain MRI showed a tiny lacunar infarct in the right hemisphere. He has had a carotid duplex that apparently showed some evidence of carotid stenosis. ASSESSMENT/PLAN: An 89-year-old gentleman with a cerebrovascular accident. This apparently his first episode. Now, seems to have completely resolved, and I assume he is at his baseline. He does have some degree of carotid stenosis. I will follow up his duplex examination, but in the meantime, would recommend maximal medical management with statin and aspirin, and he is on Eliquis for atrial fibrillation. It would be reasonable to evaluate his heart with an echocardiogram as well to rule out cardioembolic source. Based off the degree of stenosis, he may ultimately benefit from risk reduction with carotid endarterectomy. However, at [id number], he may be best managed medically. I will continue to follow along. I agree with physical therapy, speech therapy, and medical management at this juncture. cc: Alexander Martinez MD
--- NOTE | 2019-08-03 08:49 | Carotid Study ---
DATE: 08/02/2019 [employer]ERIAL [employer]LING CREW SUPERVISOR: Kayla CRANE PHYSICIAN: CHELSEY Ryan INDICATIONS: TIA and altered mental status. FINDINGS: Bilateral carotid systems were visualized along their course. Starting on the right, there is a broad-based plaque starting in the bulb and extending to proximal internal carotid artery that does cause some degree of stenosis, but no elevation of velocities and would correlate to a 39% lesion. In the left, there is a more calcified heterogeneous plaque that begins in the distal common carotid artery and extends through the bulb into the proximal internal carotid artery that does cause elevation of velocities with peak systolic of 226 that would correlate to a 60% to 79% stenosis here. Vertebral arteries are antegrade bilaterally. SUMMARY: Mild degree of stenosis of 0% to 39% on the right, with severe stenosis of 60% to 79% in the left, with antegrade vertebrals noted. cc: MD Yancy Copeland CRNP
--- NOTE | 2019-08-03 09:36 | PROGRESS NOTE ---
DATE: 08/03/2019 SUBJECTIVE: Mr. Mathur was sitting up, eating breakfast, alert and oriented x3. Appeared comfortable. No complaints. OBJECTIVE: Vital Signs: Temp 97.6 degrees, pulse 78, respirations 16, blood pressure 112/61. HEENT: Pupils are equal and round. Lungs: Clear in all lung zamorano. Cardiovascular: Regular rhythm and rate without murmur or S3. Abdomen: Soft. Skin: Warm and dry. Urine output is 3300 mL. ASSESSMENT AND PLAN: 1. Cerebrovascular accident. Apparently, this is his first episode. It appears that he is back to baseline. Will discuss with family. He does have some degree of carotid stenosis. Continue his medical management, statin, and aspirin. He is on Eliquis for atrial fibrillation. 2. Presented with nonspecific encephalopathy, drowsiness, and I suspect it is related to his cerebrovascular accident. Dr. Valdez felt like transient acute confused state, left-sided facial and left arm numbness which resolved, and a very small stroke in the temporal region subcortically on imaging. Brain MRI showed tiny lacunar infarct in the right hemisphere. 3. History of coronary artery disease, status post myocardial infarction. 4. History of atrial fibrillation. 5. Hypertension. 6. Diabetes mellitus type 2. 7. Hypothyroidism. REVIEW OF LABORATORY DATA: Unremarkable. Creatinine is 0.7. Will discuss with the crew, and see if he may get to go home today. cc: Wally Marquez MD
[2019-08-03] MEDS: LANOXIN PO SCH (09:48)
[2019-08-03] MEDS: ASPIRIN PO SCH (09:48)
[2019-08-03] MEDS: ELIQUIS PO SCH (09:48)
[2019-08-03 13:40] VITALS: BP 158/76
--- NOTE | 2019-08-03 14:32 | DISCHARGE SUMMARY ---
ADMISSION DATE: 08/01/2019 DISCHARGE DATE: 08/03/2019 He is a patient of Dr. Anton Ordaz and presented with headache, left arm numbness, left side of mouth numb again on Thursday around 4 p.m. resolved. He got confused, so 89-year-old presented to [facility] complaining of occipital headache, some left arm numbness, and the left side of his mouth being numb and this was Thursday evening about 4 p.m. Daughter states he got confused on Thursday night, got lost in his home. Trying to get to the bathroom and so symptoms seemed to resolve in a short time. He was oriented x3, but brought him to the hospital. CT of the head without contrast showed no hemorrhage, mild chronic ischemic changes. PAST MEDICAL HISTORY: Coronary artery disease status post myocardial infarction, history of hypertension, history of atrial fibrillation, diabetes mellitus type 2, hypothyroidism. PAST SURGICAL HISTORY: Heart stent placement, hemorrhoidectomy, and cataract removal. Admitted with transient ischemic event. His brain MRI showed tiny lacunar infarct in the right hemisphere. His carotid Dopplers showed severe stenosis in the left but 0-39 in the right. His carotid Doppler otherwise unremarkable. Dr. Valdez saw him and felt he had transient acute confusional state, left-sided facial and left arm numbness, which resolved. A very small stroke in the jew region, subcortical on imaging on the right. His workup was unremarkable and he has already been on Eliquis, so we will add aspirin to his regimen. Blood sugars were monitored. He does have risk factors of diabetes, hypercholesterolemia history, distant history of smoking, and apparently cullen has a family history as well. DISCHARGE: So discharge, he is going to be on Eliquis 2.5 mg b.i.d., aspirin 81 mg a day, Lanoxin 125 mcg p.o. daily. He apparently was on medicines at home per Dr. Ordaz for his diabetes and I am going to let him pursue that as an outpatient basis with Dr. Ordaz. Apparently, he has had poor tolerance to cholesterol medicine, but I would recommend that he get on a statin as well. cc: Wally Marquez MD
== END 2019-08-03 15:21 | disposition home or self-care (01) ==
LOC: ED 12:36 → 1N 12:36 → SUATTDRO 19:05 → 3N 23:15
PROVIDERS: ATTEND Emergency Medicine